=== PATIENT | female | born 1995 | race Caucasian/White ===

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

== ENCOUNTER 2017-04-30 23:12 | Emergency (ER) | payer BC, OTHER ==
[~2017-04-30] VITALS: Ht 152.4 cm; Wt 55.8 kg
--- NOTE | 2017-04-30 23:18 | PHYS DOC ---
Past Medical History Past Medical History: No Pertinent History, Other Additional Past Medical Histor: knee pain, SEASONAL ALLERGIES Past Surgical History: Appendectomy, Other Additional Past Surgical Histo: dental work Additional Information: non smoker Alcohol Use: None Drug Use: None Adult General Chief Complaint Chief Complaint: PAIN ON URINATION HPI HPI Patient is a 21 year old female who presents with urinary complaints. Started at 1700 PM with burning with urination. At 2100 PM developed blood in her urine. She has frequency and hesitancy. No vomiting. No fever. post 2016. Review of Systems Review of Systems Constitutional: Denies fever or chills Eyes: Denies change in visual acuity, redness, or eye pain HENT: Denies nasal congestion or sore throat Respiratory: Denies cough or shortness of breath GI: Denies abdominal pain, nausea, vomiting, bloody stools or diarrhea : POS dysuria or hematuria Musculoskeletal: Denies back pain or joint pain Neurologic: Denies headache, focal weakness or sensory changes All other systems were reviewed and found to be within normal limits, except as documented in this note. Current Medications Current Medications Current Medications Medications (Trade) Dose Ordered Sig/Shan Start Time Stop Time Status Last Admin Dose Admin Ciprofloxacin (Cipro) 500 mg 1X ONCE 05/01/17 00:00 05/01/17 00:01 Phenazopyridine HCl (Pyridium) 200 mg 1X ONCE 05/01/17 00:00 05/01/17 00:01 Allergies Allergies Allergies Coded Allergies Type Severity Reaction Last Updated Verified No Known Drug Allergies 08/06/13 No Physical Exam Physical Exam Constitutional: Well developed, well nourished, no acute distress, non-toxic appearance. HENT: Normocephalic, atraumatic, bilateral external ears normal, oropharynx moist, no oral exudates, nose normal. Eyes: PERRLA, EOMI, conjunctiva normal, no discharge. Neck: Normal range of motion, no tenderness, supple, no stridor. Cardiovascular:Heart rate regular rhythm, no murmur Lungs & Thorax: Bilateral breath sounds clear to auscultation Abdomen: Bowel sounds normal, soft, no tenderness, no masses, no pulsatile masses. No rebound or guarding. Skin: Warm, dry, no erythema, no rash. Back: No tenderness, no CVA tenderness. Extremities: No tenderness, no cyanosis, no clubbing, ROM intact, no edema. Neurologic: Alert and oriented X 3, normal motor function, normal sensory function, no focal deficits noted. Psychologic: Affect normal, judgement normal, mood normal. Current Patient Data Vital Signs Vital Signs Date Time Temp Pulse Resp B/P (MAP) Pulse Ox O2 Delivery O2 Flow Rate FiO2 04/30/17 23:20 98.5 86 16 109/67 (81) 100 Room Air 98.5 Lab Values Laboratory Tests Test 04/30/17 23:20 04/30/17 23:28 Urine Collection Type Unknown Urine Color Red Urine Clarity Turbid Urine pH 6.0 Urine Specific [place] 1.020 Urine Protein >=300 mg/dL (NEG-TRACE) Urine Glucose (UA) Negative mg/dL (NEG) Urine Ketones (Stick) Negative mg/dL (NEG) Urine Blood Large (NEG) Urine Nitrite Negative (NEG) Urine Bilirubin Negative (NEG) Urine Urobilinogen Dipstick 0.2 mg/dL (0.2 mg/dL) Urine Leukocyte Esterase Large (NEG) Urine RBC Tntc /HPF (0-2) Urine WBC Tntc /HPF (0-4) Urine Squamous Epithelial Cells Many /LPF Urine Bacteria Many /HPF (0-FEW) Urine Mucus Marked /LPF POC Urine HCG, Qualitative Hcg negative (Negative) Course & Med Decision Making Course & Med Decision Making Evaluated patient upon arrival. UA sent. UCG negative. UA markedly positive. Dosed here with Cipro and Pyridium (PATIENT IS NOT ). I have spoken with the patient and/or caregivers. I have explained the patient' s condition, diagnosis and treatment plan based on the information available to me at this time. I have answered the patient's and/or caregiver's questions and addressed any concerns. The patient and/or caregivers have as good an understanding of the patient's diagnosis, condition and treatment plan as can be expected at this point. The patient's condition is stable and appropriate for discharge from the emergency department. The patient will pursue further outpatient evaluation with the primary care physician or other designated or consulting physician as outlined in the discharge instructions. The patient and/or caregivers are agreeable to this plan of care and follow-up instructions have been explained in detail. The patient and/or caregivers have received these instructions in written format and have expressed an understanding of the discharge instructions. The patient and/or caregivers are aware that any significant change in condition or worsening of symptoms should prompt an immediate return to this or the closest emergency department or a call to 911. Dragon Disclaimer Dragon Disclaimer This electronic medical record was generated, in whole or in part, using a voice recognition dictation system. Departure Departure Impression: Primary Impression: UTI (lower urinary tract infection) Disposition: HOME, SELF-CARE Condition: STABLE Referrals: CARON HERNANDEZ APRN (PCP) Patient Instructions: Urinary Tract Infection Additional Instructions: YOU WERE DOSED HERE TONIGHT WITH THE ANTIBIOTICS AND BLADDER PAIN MEDICATION Scripts Ciprofloxacin Hcl (CIPRO) 500 Mg Tablet 1 TAB PO BID, #14 TAB Prov: NAHUM BRADY MD 04/30/17 Phenazopyridine Hcl (PYRIDIUM) 200 Mg Tablet 200 MG PO TID, #10 TAB Prov: NAHUM BRADY MD 04/30/17 NAHUM BRADY MD Apr 30, 2017 23:18
[2017-04-30 23:20] VITALS: BP 109/67
[2017-04-30 23:36] LABS: GLUCOSE,URINE NEGATIVE (NEG); NITRITE,URINE NEGATIVE (NEG); PROTEIN,URINE >=300 mg/dL (NEG-TRACE)
[2017-04-30 23:42] LABS: BILIRUBIN,URINE NEGATIVE (NEG); UROBILINOGEN,URINE 0.2 mg/dL (0.2 mg/dL)
[2017-04-30 23:44] LABS: BACTERIA,URINE MANY /HPF (0-FEW); RBC,URINE TNTC /HPF (0-2); SQUAMOUS EPITHELIAL CELL,UR MANY /LPF; WBC,URINE TNTC /HPF (0-4)
[2017-04-30] MEDS ORDERED: CIPR500T94 PO (23:59)
[2017-04-30] MEDS ORDERED: PHEN-318 PO (23:59)
[2017-05-01] MEDS ORDERED: PHENAZOPYRIDINE 200 MG TABLET. PO ONE
[2017-05-01] MEDS ORDERED: CIPROFLOXACIN HCL 250 MG TABLET. PO ONE
== END 2017-05-01 00:14 | disposition home or self-care (01) ==
LOC: ER 23:12
DX: N39.0 Urinary tract infection, site not specified (principal); Z90.49 Acquired absence of other specified parts of digestive tract
CPT/HCPCS: 81001; 81025; 87086; 99284

== ENCOUNTER 2018-11-19 22:14 | Emergency (ER) | payer BC, OTHER ==
[~2018-11-19] VITALS: Ht 152.4 cm; Wt 59.0 kg
[~2018-11-19 22:14] MED LIST changes: +CIPR500T94 PO; +PHEN-318 PO
[2018-11-19 22:33] VITALS: BP 102/64
[2018-11-19 22:46] LABS: BILIRUBIN,URINE NEGATIVE (NEG); CLARITY,URINE CLOUDY; COLOR,URINE YELLOW; NITRITE,URINE NEGATIVE (NEG); PROTEIN,URINE NEGATIVE (NEG-TRACE)
[2018-11-19 22:53] LABS: SQUAMOUS EPITHELIAL CELL,UR FEW /LPF
[2018-11-19 22:54] LABS: BACTERIA,URINE FEW /HPF (0-FEW); RBC,URINE 20-40 /HPF (0-2); WBC,URINE 20-40 /HPF (0-4)
[2018-11-19] MEDS ORDERED: CEPH500T PO (22:58)
--- NOTE | 2018-11-19 23:09 | PHYS DOC ---
Past Medical History Past Medical History: No Pertinent History, Other Additional Past Medical Histor: knee pain, SEASONAL ALLERGIES Past Surgical History: Appendectomy, Other Additional Past Surgical Histo: dental work Alcohol Use: None Drug Use: None Adult General Chief Complaint Chief Complaint: URINARY FREQUENCY HPI HPI Patient is a 23 year old f p/w dysuria and urianry frequency. no vomiting no flank pain thinks it is a uti Allergies Allergies Allergies Coded Allergies Type Severity Reaction Last Updated Verified No Known Drug Allergies 08/06/13 No Physical Exam Physical Exam Constitutional: Well developed, well nourished, no acute distress, non-toxic appearance. [] HENT: Normocephalic, atraumatic, bilateral external ears normal, oropharynx moist, no oral exudates, nose normal. [] Eyes: PERRLA, EOMI, conjunctiva normal, no discharge. [] Neck: Normal range of motion, no tenderness, supple, no stridor. [] Abdomen: Bowel sounds normal, soft, no tenderness, no masses, no pulsatile masses. [] Extremities: No tenderness, no cyanosis, no clubbing, ROM intact, no edema. [] Neurologic: Alert and oriented X 3, normal motor function, normal sensory function, no focal deficits noted. [] Psychologic: Affect normal, judgement normal, mood normal. [] Current Patient Data Vital Signs Vital Signs Date Time Temp Pulse Resp B/P (MAP) Pulse Ox O2 Delivery O2 Flow Rate FiO2 11/19/18 22:33 99.0 66 20 102/64 (77) 96 Room Air 99.0 Lab Values Laboratory Tests Test 11/19/18 22:19 11/19/18 22:40 Urine Collection Type Unknown Urine Color Yellow Urine Clarity Cloudy Urine pH 7.0 Urine Specific [place] 1.020 Urine Protein Negative mg/dL (NEG-TRACE) Urine Glucose (UA) Negative mg/dL (NEG) Urine Ketones (Stick) Negative mg/dL (NEG) Urine Blood Large (NEG) Urine Nitrite Negative (NEG) Urine Bilirubin Negative (NEG) Urine Urobilinogen Dipstick 1.0 mg/dL (0.2 mg/dL) Urine Leukocyte Esterase Large (NEG) Urine RBC 20-40 /HPF (0-2) Urine WBC 20-40 /HPF (0-4) Urine Squamous Epithelial Cells Few /LPF Urine Bacteria Few /HPF (0-FEW) POC Urine HCG, Qualitative Hcg negative (Negative) EKG EKG [] Radiology/Procedures Radiology/Procedures [] Course & Med Decision Making Course & Med Decision Making Pertinent Labs and Imaging studies reviewed. (See chart for details) []uti keflex no vomiting or flank pain. return prec discussed Dragon Disclaimer Dragon Disclaimer This electronic medical record was generated, in whole or in part, using a voice recognition dictation system. Departure Departure Impression: Primary Impression: UTI (lower urinary tract infection) Disposition: HOME, SELF-CARE Condition: STABLE Referrals: NO PCP (PCP) Patient Instructions: Urinary Tract Infection, [id number] Scripts Cephalexin (CEPHALEXIN) 500 Mg Tablet 1 TAB PO QID, #40 TAB Prov: SHAHIDA LARSEN MD 11/19/18 SHAHIDA LARSEN MD Nov 19, 2018 23:09
== END 2018-11-19 23:10 | disposition home or self-care (01) ==
LOC: ER 22:14
DX: N39.0 Urinary tract infection, site not specified (principal); Z90.89 Acquired absence of other organs
CPT/HCPCS: 81001; 81025; 87086; 99284